=== PATIENT | female | born 1985 | race Caucasian/White ===

== ENCOUNTER → 2016-09-27 | Outpatient (REF) | payer MEDICAID ==
[~2016-09-27] MED LIST: /CELE20CA OR; /ESCI20TA; /ESOM40CA; /FENO48TA PO; /ONDA4TA OR; /PANT40TA OR; /WARF4TA PO; ACET65TA OR; ALA1CRE TOP; ALBU83IN; ASPI325T PO; ASPI81TA83 OR; ASPI81TA85 PO; BACL10TA2 OR; BISA10SU2 PR; CELE40TA OR; CETI10TA OR; CITRATE OF MAGNESIA PO; COLA100C2 OR; COMBVENT INH; CORTISONE CREAM TOP; DEPA500T; DEPA500T2 OR; DEPA500T2 PO; DEPAKOTE PO; DIVA500T3 PO; DUONSOL IN; ENEMENE3 PR; ENOX40SY SC; FLOV110A INH; GABA800T3 OR; HYDR50TA8 OR; IBUP400T OR; KEPP500T4 PO; KEPPRA PO; LASI20TA OR; LASI40TA PO; LEVETIRACETAM PO; LIDODERM PATCH TD; MEDR1VL IM; METAXALONE PO; METF1000 PO; METF500T PO; MILKSUS OR; MIRALEX PO; MOBI15TA PO; MOM30SS PO; MUCI600T34 PO; MULTIVIT PO; MYLASUS6 PO; NEUR400C OR; NEURONTIN PO; NYSTPOW4 TOP; PERC5TAB8 OR; PERCOCET PO; PREPARATION H TOP; PREPGEL; PROZAC PO; SIMV20TA2 OR; SODIGEL; TRAZ50TA2 PO; VENTAER IN; VENTAER INH; VIMP50TA3 PO; VIST25CA OR; VIST50CA OR; WARF3TAB PO; XANA0.25 PO; ZANT150T PO; [UNRECOGNIZED DRUG - OTHER] PO; desyrel PO; fleet enema PR; imodium PO; nicorette PO; roxanol SL; skelaxin PO
== END ==
PROVIDERS: ATTEND Internal Medicine
DX: R56.9 Unspecified convulsions (principal)

== ENCOUNTER → 2016-10-24 | Outpatient (REF) | payer MEDICAID | PROVIDERS: ATTEND Internal Medicine | DX: G80.9 Cerebral palsy, unspecified (principal) ==

== ENCOUNTER → 2016-11-28 | Outpatient (REF) | payer MEDICAID | PROVIDERS: ATTEND Internal Medicine | DX: G40.909 Epilepsy, unspecified, not intractable, without status epilepticus (principal) ==

== ENCOUNTER → 2016-12-08 | Outpatient (REF) | payer MEDICAID | PROVIDERS: ATTEND Internal Medicine | DX: Z51.81 Encounter for therapeutic drug level monitoring (principal); Z79.899 Other long term (current) drug therapy ==

== ENCOUNTER → 2017-01-09 | Outpatient (REF) | payer MEDICAID | PROVIDERS: ATTEND Internal Medicine | DX: M54.5 Low back pain (principal) ==

== ENCOUNTER → 2017-01-17 | Outpatient (REF) | payer MEDICAID ==
--- NOTE | 2017-01-17 10:46 | REP ---
LUMBAR SPINE, SIX VIEWS: HISTORY: Back pain. There is no acute fracture or subluxation. The L2-3 through L5-S1 intervertebral discs are decreased in height consistent with disc degeneration. The facet joints are normal in appearance. IMPRESSION: Degenerative change, as described above. Signed by Mahamed Lerner MD 01/17/2017 10:48 A
== END ==
PROVIDERS: ATTEND Internal Medicine
DX: M51.36 Other intervertebral disc degeneration, lumbar region (principal)

== ENCOUNTER → 2017-01-17 | Outpatient (CLI) | payer MEDICAID | LOC: M RAD 09:52 | PROVIDERS: ATTEND Physician Assistant | DX: M54.5 Low back pain (principal) ==

== ENCOUNTER → 2017-01-23 | Outpatient (REF) | payer MEDICAID | PROVIDERS: ATTEND Internal Medicine | DX: R07.9 Chest pain, unspecified (principal) ==

== ENCOUNTER → 2017-02-14 | Outpatient (REF) | payer MEDICAID ==
[2017-02-14 10:54] LABS: MEAN CORPUSCULAR HEMOGLOBIN 28.7 pg (27.0-33.0); MEAN CORPUSCULAR HGB CONC 32.1 g/dl (32.0-36.5); MEAN CORPUSCULAR VOLUME 89.4 fl (80.0-96.0); RED CELL DISTRIBUTION WIDTH 13.4 % (11.5-14.5); WHITE BLOOD COUNT 7.8 K/mm3 (4.0-10.0)
[2017-02-14 11:22] LABS: ALBUMIN 3.2 GM/DL (3.2-5.2); ALBUMIN/GLOBULIN RATIO 0.94 (1.00-1.93); ALKALINE PHOSPHATASE 60 U/L (45-117); ALT/SGPT 21 U/L (12-78); ANION GAP 7 MEQ/L (8-16); AST/SGOT 21 U/L (15-37); BILIRUBIN,TOTAL 0.1 MG/DL (0.2-1.0); BLOOD UREA NITROGEN 8 MG/DL (7-18); CALCIUM LEVEL 8.5 MG/DL (8.5-10.1); CARBON DIOXIDE LEVEL 34 MEQ/L (21-32); CHLORIDE LEVEL 102 MEQ/L (98-107); CREATININE FOR GFR 0.24 MG/DL (0.55-1.02); GLOMERULAR FILTRATION RATE > 60.0 (>60); GLUCOSE, FASTING 98 MG/DL (70-105); POTASSIUM SERUM 4.4 MEQ/L (3.5-5.1); SODIUM LEVEL 143 MEQ/L (136-145); TOTAL PROTEIN 6.6 GM/DL (6.4-8.2)
== END ==
PROVIDERS: ATTEND Internal Medicine
DX: H10.45 Other chronic allergic conjunctivitis (principal); R63.5 Abnormal weight gain; R25.2 Cramp and spasm

== ENCOUNTER → 2017-02-28 | Outpatient (REF) | payer MEDICAID | PROVIDERS: ATTEND Internal Medicine | DX: G43.909 Migraine, unspecified, not intractable, without status migrainosus (principal) ==

== ENCOUNTER → 2017-03-27 | Outpatient (REF) | payer MEDICAID | PROVIDERS: ATTEND Internal Medicine | DX: R56.9 Unspecified convulsions (principal) ==

== ENCOUNTER → 2017-04-03 | Outpatient (REF) | payer MEDICAID | PROVIDERS: ATTEND Internal Medicine | DX: G40.909 Epilepsy, unspecified, not intractable, without status epilepticus (principal) ==

== ENCOUNTER → 2017-04-24 | Outpatient (REF) | payer MEDICAID ==
[2017-04-27 00:06] LABS: VITAMIN D 1,25 DIHYDROXY 28.6 pg/mL (19.9-79.3)
== END ==
PROVIDERS: ATTEND Internal Medicine
DX: G80.9 Cerebral palsy, unspecified (principal)

== ENCOUNTER → 2017-05-30 | Outpatient (REF) | payer MEDICAID | PROVIDERS: ATTEND Internal Medicine | DX: G40.909 Epilepsy, unspecified, not intractable, without status epilepticus (principal) ==

== ENCOUNTER → 2017-07-31 | Outpatient (CLI) | payer MEDICAID ==
--- NOTE | 2017-07-31 15:41 | REP ---
Clinical: Pelvic pain. History of ovarian cyst. Technique: Transabdominal pelvic ultrasound followed by transvaginal examination for better evaluation of the endometrium and adnexa with color Doppler evaluation of the ovaries. Comparison: 06/29/2016. Findings: The bladder is completely collapsed. Anteverted uterus measures 11.6 x 6.1 x 6.6 cm. The endometrial complex is poorly evaluated due to technical factors. The left ovary is not visualized. The right ovary measures 6.0 x 5.6 x 6.2 cm and includes a 5.0 x 3.9 x 4.6 cm simple cyst. Vascularity to the right ovary is normal and there is no evidence for torsion; RI = 0.71. No pelvic fluid or adnexal mass lesion. Impression: Heterogeneous enlarged uterus. 5.0 cm right ovarian cyst similar to prior examination. No evidence for torsion. Signed by Edi Johnson MD 07/31/2017 03:33 P
== END ==
LOC: M RAD 13:14
PROVIDERS: ATTEND Physician Assistant
DX: N85.2 Hypertrophy of uterus (principal); N83.291 Other ovarian cyst, right side; D39.11 Neoplasm of uncertain behavior of right ovary; R10.31 Right lower quadrant pain

== ENCOUNTER → 2017-08-01 | Outpatient (REF) | payer MEDICAID ==
[2017-08-01 11:17] LABS: MEAN CORPUSCULAR HEMOGLOBIN 26.9 pg (27.0-33.0); MEAN CORPUSCULAR HGB CONC 29.6 g/dl (32.0-36.5); MEAN CORPUSCULAR VOLUME 91.1 fl (80.0-96.0); PLATELET COUNT, AUTOMATED 295 10^3/uL (150-450); RED CELL DISTRIBUTION WIDTH 14.1 % (11.5-14.5); WHITE BLOOD COUNT 7.6 10^3/uL (4.0-10.0)
[2017-08-01 11:41] LABS: ALBUMIN 3.2 GM/DL (3.2-5.2); ALBUMIN/GLOBULIN RATIO 0.89 (1.00-1.93); ALKALINE PHOSPHATASE 58 U/L (45-117); ALT/SGPT 15 U/L (12-78); ANION GAP 7 MEQ/L (8-16); AST/SGOT 5 U/L (7-37); BILIRUBIN,TOTAL 0.1 MG/DL (0.2-1.0); BLOOD UREA NITROGEN 7 MG/DL (7-18); CALCIUM LEVEL 8.8 MG/DL (8.5-10.1); CARBON DIOXIDE LEVEL 35 MEQ/L (21-32); CHLORIDE LEVEL 100 MEQ/L (98-107); CHOLESTEROL LEVEL 229 MG/DL (<200); CREATININE FOR GFR 0.31 MG/DL (0.55-1.02); GLOMERULAR FILTRATION RATE > 60.0 (>60); GLUCOSE, FASTING 124 MG/DL (70-105); SODIUM LEVEL 142 MEQ/L (136-145); TOTAL PROTEIN 6.8 GM/DL (6.4-8.2); TRIGLYCERIDES LEVEL 261 MG/DL (<150)
== END ==
PROVIDERS: ATTEND Internal Medicine
DX: G80.9 Cerebral palsy, unspecified (principal)

== ENCOUNTER → 2017-09-03 | Outpatient (REF) | payer MEDICAID ==
[2017-09-03 12:52] LABS: MEAN CORPUSCULAR HEMOGLOBIN 26.8 pg (27.0-33.0); MEAN CORPUSCULAR HGB CONC 29.5 g/dl (32.0-36.5); MEAN CORPUSCULAR VOLUME 90.8 fl (80.0-96.0); PLATELET COUNT, AUTOMATED 277 10^3/uL (150-450); RED CELL DISTRIBUTION WIDTH 14.6 % (11.5-14.5)
[2017-09-03 13:14] LABS: ANION GAP 6 MEQ/L (8-16); BLOOD UREA NITROGEN 9 MG/DL (7-18); CALCIUM LEVEL 9.3 MG/DL (8.5-10.1); CARBON DIOXIDE LEVEL 35 MEQ/L (21-32); CHLORIDE LEVEL 101 MEQ/L (98-107); CREATININE FOR GFR 0.24 MG/DL (0.55-1.02); GLOMERULAR FILTRATION RATE > 60.0 (>60); GLUCOSE, FASTING 114 MG/DL (70-105); POTASSIUM SERUM 4.1 MEQ/L (3.5-5.1); SODIUM LEVEL 142 MEQ/L (136-145)
== END ==
PROVIDERS: ATTEND Internal Medicine
DX: I10 Essential (primary) hypertension (principal)

== ENCOUNTER 2017-10-12 17:13 | Observation (INO) | payer MEDICAID ==
[2017-10-12] MEDS: NS 500 ML IV (17:00)
[2017-10-12 18:32] LABS: BASO % 0.2 % (0.0-1.0); EOS # 0.2 10^3/uL (0.0-0.50); EOS % 2.6 % (0.0-3.0); HEMATOCRIT 26.1 % (36.0-47.0); HEMOGLOBIN 7.4 g/dl (12.0-16.0); IMMATURE GRANULOCYTE # 0.1 10^3/uL (0-0); IMMATURE GRANULOCYTE % 0.7 % (0-0); LYMPH # 2.6 10^3/uL (1.5-4.5); LYMPH % 30.4 % (24.0-44.0); MEAN CORPUSCULAR HEMOGLOBIN 22.7 pg (27.0-33.0); MEAN CORPUSCULAR HGB CONC 28.4 g/dl (32.0-36.5); MEAN CORPUSCULAR VOLUME 80.1 fl (80.0-96.0); MONO % 12.1 % (0.0-5.0); NEUTROPHILS # 4.6 10^3/uL (1.8-7.7); PLATELET COUNT, AUTOMATED 428 10^3/uL (150-450); RED BLOOD COUNT 3.26 10^6/uL (4.00-5.40); WHITE BLOOD COUNT 8.6 10^3/uL (4.0-10.0)
[2017-10-12 18:47] LABS: PROTHROMBIN TIME 12.2 SECONDS (12.4-14.5)
[2017-10-12 18:48] LABS: PARTIAL THROMBOPLASTIN TIME 27.7 SECONDS (26.8-37.9)
[2017-10-12 18:51] LABS: ALBUMIN 2.9 GM/DL (3.2-5.2); ALBUMIN/GLOBULIN RATIO 0.67 (1.00-1.93); ALKALINE PHOSPHATASE 52 U/L (45-117); ALT/SGPT 11 U/L (12-78); ANION GAP 4 MEQ/L (8-16); AST/SGOT 50 U/L (7-37); BILIRUBIN,DIRECT < 0.1 MG/DL (0.0-0.2); BILIRUBIN,TOTAL 0.2 MG/DL (0.2-1.0); BLOOD UREA NITROGEN 9 MG/DL (7-18); CALCIUM LEVEL 8.5 MG/DL (8.5-10.1); CARBON DIOXIDE LEVEL 35 MEQ/L (21-32); CHLORIDE LEVEL 101 MEQ/L (98-107); CREATININE FOR GFR 0.33 MG/DL (0.55-1.02); GLOMERULAR FILTRATION RATE > 60.0 (>60); GLUCOSE, FASTING 135 MG/DL (70-100); LIPASE 77 U/L (73-393); SODIUM LEVEL 140 MEQ/L (136-145); TOTAL PROTEIN 7.2 GM/DL (6.4-8.2)
[2017-10-12 18:52] LABS: LACTIC ACID SEPSIS PROTOCOL 1.6 MMOL/L (0.4-2.0)
[2017-10-12 18:54] LABS: POTASSIUM SERUM 4.9 MEQ/L (3.5-5.1)
[2017-10-12] MEDS ORDERED: ONDANSETRON 4MG/2ML VIAL (J2405) IV (21:15)
[2017-10-12] MEDS ORDERED: ACETAMINOPHEN TAB 650MG DOSE (2X325MG) PO (21:15)
[2017-10-12 21:44] LABS: IMMEDIATE SPIN CROSSMATCH 1 3
[2017-10-12] MEDS: LORazepam 2 MG/ML VIAL (J2060) IV (21:49)
[2017-10-12] MEDS ORDERED: MOM 30ML SUSPENSION UDC PO (22:45)
[2017-10-12] MEDS ORDERED: BISACODYL 10 MG SUPP PR (22:45)
[2017-10-12] MEDS ORDERED: POLYVINYL ALCOHOL OPHTH SOLN 15 ML(LIQUITEARS) OU (22:45)
[2017-10-12] MEDS ORDERED: FLEET ENEMA PR (22:45)
[2017-10-12] MEDS ORDERED: ALBUTEROL SULFATE 2.5 MG/0.5 ML INH NEB SOLN INH (22:45)
[2017-10-12] MEDS ORDERED: SODIUM CHLORIDE 0.9% NASAL GEL 15MG (AYR) (22:45)
[2017-10-13 07:05] LABS: BASO % 0.2 % (0.0-1.0); EOS # 0.2 10^3/uL (0.0-0.50); EOS % 1.8 % (0.0-3.0); HEMATOCRIT 31.3 % (36.0-47.0); IMMATURE GRANULOCYTE # 0.1 10^3/uL (0-0); IMMATURE GRANULOCYTE % 0.8 % (0-0); LYMPH # 2.3 10^3/uL (1.5-4.5); LYMPH % 25.1 % (24.0-44.0); MEAN CORPUSCULAR HEMOGLOBIN 23.9 pg (27.0-33.0); MEAN CORPUSCULAR HGB CONC 30.4 g/dl (32.0-36.5); MEAN CORPUSCULAR VOLUME 78.8 fl (80.0-96.0); MONO # 1.3 10^3/uL (0.0-0.8); MONO % 14.6 % (0.0-5.0); NEUTROPHILS # 5.2 10^3/uL (1.8-7.7); NEUTROPHILS % 57.5 % (36.0-66.0); PLATELET COUNT, AUTOMATED 371 10^3/uL (150-450); RED BLOOD COUNT 3.97 10^6/uL (4.00-5.40); RED CELL DISTRIBUTION WIDTH 17.8 % (11.5-14.5)
[2017-10-13 07:11] LABS: HEMOGLOBIN 9.5 g/dl (12.0-16.0)
[2017-10-13 07:28] LABS: ANION GAP 4 MEQ/L (8-16); BLOOD UREA NITROGEN 7 MG/DL (7-18); CALCIUM LEVEL 8.4 MG/DL (8.5-10.1); CARBON DIOXIDE LEVEL 36 MEQ/L (21-32); CHLORIDE LEVEL 103 MEQ/L (98-107); CREATININE FOR GFR 0.28 MG/DL (0.55-1.02); GLOMERULAR FILTRATION RATE > 60.0 (>60); GLUCOSE, FASTING 111 MG/DL (70-100); SODIUM LEVEL 143 MEQ/L (136-145)
[2017-10-13] MEDS: BACLOFEN 10 MG TAB PO ×3 (08:47→19:34)
[2017-10-13] MEDS: levETIRAcetam 250MG TABLET (KEPPRA) PO ×2 (08:48→19:32)
[2017-10-13] MEDS: DOCUSATE SODIUM 100 MG CAP PO ×2 (08:48→19:33)
[2017-10-13] MEDS: LETROZOLE 2.5 MG TAB PO (08:48)
[2017-10-13] MEDS: GABAPENTIN 400 MG CAP PO ×3 (08:48→19:36)
[2017-10-13] MEDS: DIVALPROEX 500 MG TAB PO ×2 (08:48→19:34)
[2017-10-13] MEDS: CEPHALEXIN 500 MG CAP PO ×2 (08:48→19:34)
[2017-10-13] MEDS: LACTIC ACID 12% LOTION 225 GM BTL TOP (08:49)
[2017-10-13] MEDS: GEMFIBROZIL 600 MG TAB PO ×2 (08:49→19:34)
[2017-10-13] MEDS: NORCO, ANEXSIA 5/325MG TABLET (HYDROcodone/ACETAMINOPHEN) PO ×2 (13:17→19:33)
[2017-10-13 19:13] LABS: HEMATOCRIT 32.4 % (36.0-47.0); HEMOGLOBIN 9.8 g/dl (12.0-16.0)
[2017-10-13] MEDS: FLUoxetine 20 MG CAP PO (19:32)
[2017-10-13] MEDS: PRAVASTATIN 20 MG TAB PO (19:34)
[2017-10-13] MEDS: OSELTAMIVIR PHOSPHATE 75 MG CAP (TAMIFLU) PO (19:34)
[2017-10-13] MEDS ORDERED: FLUoxetine 20 MG CAP PO (21:00)
[2017-10-14] MEDS: LORazepam 2 MG/ML VIAL (J2060) IV (02:31)
[2017-10-14 05:58] LABS: BASO % 0.4 % (0.0-1.0); EOS # 0.2 10^3/uL (0.0-0.50); EOS % 2.5 % (0.0-3.0); HEMATOCRIT 33.3 % (36.0-47.0); HEMOGLOBIN 9.7 g/dl (12.0-16.0); IMMATURE GRANULOCYTE # 0.1 10^3/uL (0-0); IMMATURE GRANULOCYTE % 0.6 % (0-0); LYMPH # 2.4 10^3/uL (1.5-4.5); LYMPH % 28.6 % (24.0-44.0); MEAN CORPUSCULAR HEMOGLOBIN 23.5 pg (27.0-33.0); MEAN CORPUSCULAR HGB CONC 29.1 g/dl (32.0-36.5); MEAN CORPUSCULAR VOLUME 80.6 fl (80.0-96.0); MONO # 1.1 10^3/uL (0.0-0.8); MONO % 13.7 % (0.0-5.0); NEUTROPHILS # 4.5 10^3/uL (1.8-7.7); NEUTROPHILS % 54.2 % (36.0-66.0); PLATELET COUNT, AUTOMATED 378 10^3/uL (150-450); RED BLOOD COUNT 4.13 10^6/uL (4.00-5.40); RED CELL DISTRIBUTION WIDTH 17.7 % (11.5-14.5); WHITE BLOOD COUNT 8.3 10^3/uL (4.0-10.0)
[2017-10-14 06:16] LABS: ANION GAP 6 MEQ/L (8-16); BLOOD UREA NITROGEN 8 MG/DL (7-18); CALCIUM LEVEL 8.8 MG/DL (8.5-10.1); CARBON DIOXIDE LEVEL 34 MEQ/L (21-32); CHLORIDE LEVEL 105 MEQ/L (98-107); CREATININE FOR GFR 0.26 MG/DL (0.55-1.02); GLOMERULAR FILTRATION RATE > 60.0 (>60); GLUCOSE, FASTING 146 MG/DL (70-100); POTASSIUM SERUM 3.7 MEQ/L (3.5-5.1); SODIUM LEVEL 145 MEQ/L (136-145)
[2017-10-14] MEDS: GEMFIBROZIL 600 MG TAB PO ×2 (09:00→19:40)
[2017-10-14] MEDS: LETROZOLE 2.5 MG TAB PO (09:00)
[2017-10-14] MEDS: CEPHALEXIN 500 MG CAP PO ×2 (09:00→19:41)
[2017-10-14] MEDS: DIVALPROEX 500 MG TAB PO ×2 (09:00→19:42)
[2017-10-14] MEDS: GABAPENTIN 400 MG CAP PO ×3 (09:00→19:42)
[2017-10-14] MEDS: DOCUSATE SODIUM 100 MG CAP PO ×2 (09:00→19:41)
[2017-10-14] MEDS: levETIRAcetam 250MG TABLET (KEPPRA) PO ×2 (09:00→19:41)
[2017-10-14] MEDS: LACTIC ACID 12% LOTION 225 GM BTL TOP (09:00)
[2017-10-14] MEDS: BACLOFEN 10 MG TAB PO ×3 (09:00→19:40)
[2017-10-14] MEDS: NORCO, ANEXSIA 5/325MG TABLET (HYDROcodone/ACETAMINOPHEN) PO ×2 (09:32→16:54)
[2017-10-14] MEDS: PRAVASTATIN 20 MG TAB PO (19:40)
[2017-10-14] MEDS: OSELTAMIVIR PHOSPHATE 75 MG CAP (TAMIFLU) PO (19:41)
[2017-10-14] MEDS: FLUoxetine 20 MG CAP PO (19:41)
[2017-10-15 08:33] LABS: BASO % 0.3 % (0.0-1.0); EOS # 0.2 10^3/uL (0.0-0.50); EOS % 2.5 % (0.0-3.0); HEMATOCRIT 34.5 % (36.0-47.0); IMMATURE GRANULOCYTE # 0.1 10^3/uL (0-0); IMMATURE GRANULOCYTE % 0.7 % (0-0); LYMPH # 2.4 10^3/uL (1.5-4.5); LYMPH % 31.3 % (24.0-44.0); MEAN CORPUSCULAR HEMOGLOBIN 23.7 pg (27.0-33.0); MEAN CORPUSCULAR VOLUME 81.8 fl (80.0-96.0); MONO # 0.9 10^3/uL (0.0-0.8); MONO % 11.7 % (0.0-5.0); NEUTROPHILS # 4.1 10^3/uL (1.8-7.7); NEUTROPHILS % 53.5 % (36.0-66.0); PLATELET COUNT, AUTOMATED 360 10^3/uL (150-450); RED BLOOD COUNT 4.22 10^6/uL (4.00-5.40); RED CELL DISTRIBUTION WIDTH 18.4 % (11.5-14.5); WHITE BLOOD COUNT 7.6 10^3/uL (4.0-10.0)
[2017-10-15] MEDS: GEMFIBROZIL 600 MG TAB PO (08:36)
[2017-10-15] MEDS: BACLOFEN 10 MG TAB PO (08:36)
[2017-10-15] MEDS: CEPHALEXIN 500 MG CAP PO (08:37)
[2017-10-15] MEDS: DIVALPROEX 500 MG TAB PO (08:37)
[2017-10-15] MEDS: LETROZOLE 2.5 MG TAB PO (08:37)
[2017-10-15] MEDS: GABAPENTIN 400 MG CAP PO (08:37)
[2017-10-15] MEDS: LACTIC ACID 12% LOTION 225 GM BTL TOP (08:40)
[2017-10-15] MEDS: levETIRAcetam 250MG TABLET (KEPPRA) PO (08:40)
[2017-10-15] MEDS: DOCUSATE SODIUM 100 MG CAP PO (08:41)
[2017-10-15 08:47] LABS: ANION GAP 6 MEQ/L (8-16); BLOOD UREA NITROGEN 5 MG/DL (7-18); CALCIUM LEVEL 8.4 MG/DL (8.5-10.1); CARBON DIOXIDE LEVEL 32 MEQ/L (21-32); CHLORIDE LEVEL 105 MEQ/L (98-107); CREATININE FOR GFR 0.28 MG/DL (0.55-1.30); GLOMERULAR FILTRATION RATE > 60.0 (>60); GLUCOSE, FASTING 149 MG/DL (70-100); POTASSIUM SERUM 3.8 MEQ/L (3.5-5.1); SODIUM LEVEL 143 MEQ/L (136-145)
[2017-10-15] MEDS: ALPRAZolam 0.25 MG TAB PO (09:13)
[2017-10-15] MEDS: NORCO, ANEXSIA 5/325MG TABLET (HYDROcodone/ACETAMINOPHEN) PO (09:14)
[2017-10-15 09:43] LABS: POS COUNT POS FLAG
== END 2017-10-15 12:55 ==
LOC: M ICU 10-13 02:59 → M MS5PR 10-13 12:09 → M ED 17:13 → M ED INP 21:10
DX: D62 Acute posthemorrhagic anemia (principal); N93.8 Other specified abnormal uterine and vaginal bleeding; K76.0 Fatty (change of) liver, not elsewhere classified; R16.0 Hepatomegaly, not elsewhere classified; N83.9 Noninflammatory disorder of ovary, fallopian tube and broad ligament, unspecified; L03.115 Cellulitis of right lower limb; G80.9 Cerebral palsy, unspecified; M41.9 Scoliosis, unspecified; I10 Essential (primary) hypertension; G40.909 Epilepsy, unspecified, not intractable, without status epilepticus; E66.01 Morbid (severe) obesity due to excess calories; F32.9 Major depressive disorder, single episode, unspecified; Z68.43 Body mass index [BMI] 50.0-59.9, adult; J45.909 Unspecified asthma, uncomplicated; Z86.718 Personal history of other venous thrombosis and embolism; K21.9 Gastro-esophageal reflux disease without esophagitis; E78.5 Hyperlipidemia, unspecified; G47.33 Obstructive sleep apnea (adult) (pediatric); N80.9 Endometriosis, unspecified; F60.3 Borderline personality disorder; Z79.899 Other long term (current) drug therapy; Z79.82 Long term (current) use of aspirin; Z79.2 Long term (current) use of antibiotics; Z91.040 Latex allergy status; Z88.8 Allergy status to other drugs, medicaments and biological substances; Z88.1 Allergy status to other antibiotic agents; Z91.041 Radiographic dye allergy status; Z88.0 Allergy status to penicillin; Z87.891 Personal history of nicotine dependence
CPT/HCPCS: 96376

== ENCOUNTER → 2017-10-12 | Outpatient (REF) | payer MEDICAID ==
[2017-10-12 13:15] LABS: HEMOGLOBIN 7.6 g/dl (12.0-16.0); MEAN CORPUSCULAR HEMOGLOBIN 22.7 pg (27.0-33.0); MEAN CORPUSCULAR HGB CONC 28.1 g/dl (32.0-36.5); MEAN CORPUSCULAR VOLUME 80.6 fl (80.0-96.0); PLATELET COUNT, AUTOMATED 434 10^3/uL (150-450); RED BLOOD COUNT 3.35 10^6/uL (4.00-5.40); RED CELL DISTRIBUTION WIDTH 17.1 % (11.5-14.5); WHITE BLOOD COUNT 8.3 10^3/uL (4.0-10.0)
[2017-10-12 13:58] LABS: VALPROIC ACID (DEPAKOTE) 116.2 UG/ML (50.0-100.0)
[2017-10-16 00:07] LABS: LEVETIRACETAM (KEPPRA) 34.2 ug/mL (10.0-40.0)
== END ==
DX: M79.89 Other specified soft tissue disorders (principal)

== ENCOUNTER → 2017-10-23 | Outpatient (REF) | payer MEDICAID ==
[2017-10-23 11:02] LABS: HEMATOCRIT 30.7 % (36.0-47.0); HEMOGLOBIN 8.7 g/dl (12.0-16.0); MEAN CORPUSCULAR HEMOGLOBIN 23.3 pg (27.0-33.0); MEAN CORPUSCULAR HGB CONC 28.3 g/dl (32.0-36.5); MEAN CORPUSCULAR VOLUME 82.1 fl (80.0-96.0); PLATELET COUNT, AUTOMATED 286 10^3/uL (150-450); RED BLOOD COUNT 3.74 10^6/uL (4.00-5.40); RED CELL DISTRIBUTION WIDTH 18.5 % (11.5-14.5)
== END ==
DX: D64.9 Anemia, unspecified (principal)

== ENCOUNTER → 2017-10-24 | Outpatient (REF) | payer MEDICAID ==
[2017-10-24 16:45] LABS: HEMATOCRIT 31.2 % (36.0-47.0); HEMOGLOBIN 9.1 g/dl (12.0-16.0); MEAN CORPUSCULAR HEMOGLOBIN 24.2 pg (27.0-33.0); MEAN CORPUSCULAR HGB CONC 29.2 g/dl (32.0-36.5); PLATELET COUNT, AUTOMATED 261 10^3/uL (150-450); RED BLOOD COUNT 3.76 10^6/uL (4.00-5.40); RED CELL DISTRIBUTION WIDTH 18.3 % (11.5-14.5); WHITE BLOOD COUNT 8.9 10^3/uL (4.0-10.0)
== END ==
DX: N93.9 Abnormal uterine and vaginal bleeding, unspecified (principal)
CPT/HCPCS: 85027

== ENCOUNTER → 2017-10-25 | Outpatient (REF) | payer MEDICAID ==
[2017-10-25 09:36] LABS: HEMATOCRIT 29.2 % (36.0-47.0); HEMOGLOBIN 8.3 g/dl (12.0-16.0); MEAN CORPUSCULAR HEMOGLOBIN 23.3 pg (27.0-33.0); MEAN CORPUSCULAR HGB CONC 28.4 g/dl (32.0-36.5); PLATELET COUNT, AUTOMATED 290 10^3/uL (150-450); RED BLOOD COUNT 3.56 10^6/uL (4.00-5.40); RED CELL DISTRIBUTION WIDTH 18.2 % (11.5-14.5); WHITE BLOOD COUNT 6.6 10^3/uL (4.0-10.0)
[2017-10-26 11:36] LABS: CA 125 4.6 U/ML (<30.2)
== END ==
DX: D64.9 Anemia, unspecified (principal)
CPT/HCPCS: 86304

== ENCOUNTER 2017-10-26 09:54 | Outpatient (REF) | payer MEDICAID ==
[2017-10-26 11:52] LABS: HEMATOCRIT 27.3 % (36.0-47.0); HEMOGLOBIN 7.8 g/dl (12.0-16.0); MEAN CORPUSCULAR HEMOGLOBIN 23.7 pg (27.0-33.0); MEAN CORPUSCULAR HGB CONC 28.6 g/dl (32.0-36.5); PLATELET COUNT, AUTOMATED 323 10^3/uL (150-450); RED BLOOD COUNT 3.29 10^6/uL (4.00-5.40); RED CELL DISTRIBUTION WIDTH 18.6 % (11.5-14.5)
[2017-10-26] MEDS: ACETAMINOPHEN TAB 650MG DOSE (2X325MG) PO (18:00)
[2017-10-26] MEDS: diphenhydrAMINE 25 MG CAP PO (18:00)
[2017-10-26 20:29] LABS: IMMEDIATE SPIN CROSSMATCH 1 2
== END 2017-10-26 23:00 ==
LOC: M MSPAV 15:21
DX: D64.9 Anemia, unspecified (principal)

== ENCOUNTER → 2017-10-27 | Outpatient (REF) | payer MEDICAID ==
[2017-10-27 11:06] LABS: HEMATOCRIT 30.2 % (36.0-47.0); HEMOGLOBIN 8.8 g/dl (12.0-16.0); MEAN CORPUSCULAR HEMOGLOBIN 25.1 pg (27.0-33.0); MEAN CORPUSCULAR HGB CONC 29.1 g/dl (32.0-36.5); PLATELET COUNT, AUTOMATED 298 10^3/uL (150-450); RED BLOOD COUNT 3.51 10^6/uL (4.00-5.40); RED CELL DISTRIBUTION WIDTH 17.6 % (11.5-14.5); WHITE BLOOD COUNT 9.4 10^3/uL (4.0-10.0)
== END ==
LOC: M LAB 10:40
DX: D64.9 Anemia, unspecified (principal)
CPT/HCPCS: 85027

== ENCOUNTER → 2017-10-29 | Outpatient (REF) | payer MEDICAID ==
[2017-10-29 10:00] LABS: HEMATOCRIT 28.6 % (36.0-47.0); HEMOGLOBIN 8.6 g/dl (12.0-16.0); MEAN CORPUSCULAR HEMOGLOBIN 25.5 pg (27.0-33.0); MEAN CORPUSCULAR HGB CONC 30.1 g/dl (32.0-36.5); MEAN CORPUSCULAR VOLUME 84.9 fl (80.0-96.0); PLATELET COUNT, AUTOMATED 345 10^3/uL (150-450); RED BLOOD COUNT 3.37 10^6/uL (4.00-5.40); WHITE BLOOD COUNT 8.6 10^3/uL (4.0-10.0)
== END ==
DX: D64.9 Anemia, unspecified (principal)
CPT/HCPCS: 85027

== ENCOUNTER → 2017-10-30 | Outpatient (REF) | payer MEDICAID ==
[2017-10-30 10:11] LABS: HEMATOCRIT 28.6 % (36.0-47.0); HEMOGLOBIN 8.5 g/dl (12.0-16.0); MEAN CORPUSCULAR HEMOGLOBIN 25.4 pg (27.0-33.0); MEAN CORPUSCULAR HGB CONC 29.7 g/dl (32.0-36.5); MEAN CORPUSCULAR VOLUME 85.4 fl (80.0-96.0); PLATELET COUNT, AUTOMATED 370 10^3/uL (150-450); RED BLOOD COUNT 3.35 10^6/uL (4.00-5.40); RED CELL DISTRIBUTION WIDTH 18.1 % (11.5-14.5); WHITE BLOOD COUNT 10.7 10^3/uL (4.0-10.0)
== END ==
DX: D64.9 Anemia, unspecified (principal)
CPT/HCPCS: 85027

== ENCOUNTER → 2017-10-31 | Outpatient (REF) | payer MEDICAID | DX: R56.9 Unspecified convulsions (principal); N18.9 Chronic kidney disease, unspecified ==

== ENCOUNTER → 2017-11-02 | Outpatient (REF) | payer MEDICAID ==
[2017-11-02 14:09] LABS: HEMATOCRIT 27.8 % (36.0-47.0); HEMOGLOBIN 8.2 g/dl (12.0-16.0); MEAN CORPUSCULAR HEMOGLOBIN 24.5 pg (27.0-33.0); MEAN CORPUSCULAR HGB CONC 29.5 g/dl (32.0-36.5); PLATELET COUNT, AUTOMATED 489 10^3/uL (150-450); RED BLOOD COUNT 3.35 10^6/uL (4.00-5.40); RED CELL DISTRIBUTION WIDTH 18.1 % (11.5-14.5); WHITE BLOOD COUNT 10.4 10^3/uL (4.0-10.0)
== END ==
DX: D64.9 Anemia, unspecified (principal)
CPT/HCPCS: 85027

== ENCOUNTER → 2017-11-06 | Outpatient (REF) | payer MEDICAID | DX: D64.9 Anemia, unspecified (principal) ==

== ENCOUNTER → 2017-11-14 | Outpatient (REF) | payer MEDICAID ==
[2017-11-14 10:41] LABS: HEMATOCRIT 28.3 % (36.0-47.0); HEMOGLOBIN 8.3 g/dl (12.0-16.0); MEAN CORPUSCULAR HEMOGLOBIN 24.9 pg (27.0-33.0); MEAN CORPUSCULAR HGB CONC 29.3 g/dl (32.0-36.5); PLATELET COUNT, AUTOMATED 459 10^3/uL (150-450); RED BLOOD COUNT 3.33 10^6/uL (4.00-5.40); RED CELL DISTRIBUTION WIDTH 16.8 % (11.5-14.5); WHITE BLOOD COUNT 6.2 10^3/uL (4.0-10.0)
[2017-11-14 11:09] LABS: ALBUMIN 2.9 GM/DL (3.2-5.2); ALBUMIN/GLOBULIN RATIO 0.94 (1.00-1.93); ALKALINE PHOSPHATASE 53 U/L (45-117); ALT/SGPT 12 U/L (12-78); ANION GAP 5 MEQ/L (8-16); AST/SGOT 7 U/L (7-37); BILIRUBIN,TOTAL 0.1 MG/DL (0.2-1.0); BLOOD UREA NITROGEN 7 MG/DL (7-18); CALCIUM LEVEL 8.4 MG/DL (8.5-10.1); CARBON DIOXIDE LEVEL 36 MEQ/L (21-32); CHLORIDE LEVEL 99 MEQ/L (98-107); GLOMERULAR FILTRATION RATE > 60.0 (>60); GLUCOSE, FASTING 113 MG/DL (70-100); POTASSIUM SERUM 3.5 MEQ/L (3.5-5.1); SODIUM LEVEL 140 MEQ/L (136-145)
== END ==
DX: D64.9 Anemia, unspecified (principal)
CPT/HCPCS: 80053

== ENCOUNTER → 2017-11-16 | Outpatient (REF) ==
[2017-11-16 10:12] LABS: HEMATOCRIT 28.4 % (36.0-47.0); HEMOGLOBIN 8.3 g/dl (12.0-16.0); MEAN CORPUSCULAR HEMOGLOBIN 24.7 pg (27.0-33.0); MEAN CORPUSCULAR HGB CONC 29.2 g/dl (32.0-36.5); MEAN CORPUSCULAR VOLUME 84.5 fl (80.0-96.0); PLATELET COUNT, AUTOMATED 444 10^3/uL (150-450); RED BLOOD COUNT 3.36 10^6/uL (4.00-5.40); RED CELL DISTRIBUTION WIDTH 16.8 % (11.5-14.5); WHITE BLOOD COUNT 6.4 10^3/uL (4.0-10.0)
== END ==
DX: D64.9 Anemia, unspecified (principal)

== ENCOUNTER → 2017-11-27 | Outpatient (REF) | payer MEDICAID ==
[2017-11-27 10:00] LABS: HEMATOCRIT 29.1 % (36.0-47.0); HEMOGLOBIN 8.1 g/dl (12.0-16.0); MEAN CORPUSCULAR HEMOGLOBIN 23.3 pg (27.0-33.0); MEAN CORPUSCULAR HGB CONC 27.8 g/dl (32.0-36.5); MEAN CORPUSCULAR VOLUME 83.9 fl (80.0-96.0); PLATELET COUNT, AUTOMATED 315 10^3/uL (150-450); RED BLOOD COUNT 3.47 10^6/uL (4.00-5.40); RED CELL DISTRIBUTION WIDTH 17.6 % (11.5-14.5); WHITE BLOOD COUNT 5.3 10^3/uL (4.0-10.0)
== END ==
DX: D64.9 Anemia, unspecified (principal)
CPT/HCPCS: 85027

== ENCOUNTER → 2017-12-04 | Outpatient (REF) | payer MEDICAID ==
[2017-12-04 10:31] LABS: HEMATOCRIT 29.2 % (36.0-47.0); HEMOGLOBIN 8.2 g/dl (12.0-16.0); MEAN CORPUSCULAR HEMOGLOBIN 23.1 pg (27.0-33.0); MEAN CORPUSCULAR HGB CONC 28.1 g/dl (32.0-36.5); MEAN CORPUSCULAR VOLUME 82.3 fl (80.0-96.0); PLATELET COUNT, AUTOMATED 268 10^3/uL (150-450); RED BLOOD COUNT 3.55 10^6/uL (4.00-5.40); RED CELL DISTRIBUTION WIDTH 17.7 % (11.5-14.5); WHITE BLOOD COUNT 6.3 10^3/uL (4.0-10.0)
== END ==
DX: D64.9 Anemia, unspecified (principal)
CPT/HCPCS: 85027

== ENCOUNTER → 2017-12-11 | Outpatient (REF) | payer MEDICAID ==
[2017-12-11 09:41] LABS: HEMATOCRIT 29.2 % (36.0-47.0); HEMOGLOBIN 8.3 g/dl (12.0-16.0); MEAN CORPUSCULAR HEMOGLOBIN 22.8 pg (27.0-33.0); MEAN CORPUSCULAR HGB CONC 28.4 g/dl (32.0-36.5); MEAN CORPUSCULAR VOLUME 80.2 fl (80.0-96.0); PLATELET COUNT, AUTOMATED 343 10^3/uL (150-450); RED BLOOD COUNT 3.64 10^6/uL (4.00-5.40); RED CELL DISTRIBUTION WIDTH 17.7 % (11.5-14.5); WHITE BLOOD COUNT 6.7 10^3/uL (4.0-10.0)
== END ==
DX: D64.9 Anemia, unspecified (principal)
CPT/HCPCS: 85027

== ENCOUNTER → 2017-12-12 | Outpatient (REF) | payer MEDICAID ==
[2017-12-12 17:17] LABS: HEMATOCRIT 29.7 % (36.0-47.0); HEMOGLOBIN 8.4 g/dl (12.0-16.0); MEAN CORPUSCULAR HEMOGLOBIN 22.9 pg (27.0-33.0); MEAN CORPUSCULAR HGB CONC 28.3 g/dl (32.0-36.5); MEAN CORPUSCULAR VOLUME 80.9 fl (80.0-96.0); PLATELET COUNT, AUTOMATED 323 10^3/uL (150-450); RED BLOOD COUNT 3.67 10^6/uL (4.00-5.40); RED CELL DISTRIBUTION WIDTH 17.8 % (11.5-14.5); WHITE BLOOD COUNT 6.8 10^3/uL (4.0-10.0)
[2017-12-12 17:37] LABS: ALBUMIN 3.2 GM/DL (3.2-5.2); ALBUMIN/GLOBULIN RATIO 0.97 (1.00-1.93); ALKALINE PHOSPHATASE 60 U/L (45-117); ALT/SGPT 15 U/L (12-78); ANION GAP 7 MEQ/L (8-16); AST/SGOT 9 U/L (7-37); BILIRUBIN,TOTAL 0.2 MG/DL (0.2-1.0); BLOOD UREA NITROGEN 8 MG/DL (7-18); CALCIUM LEVEL 8.5 MG/DL (8.5-10.1); CARBON DIOXIDE LEVEL 33 MEQ/L (21-32); CHLORIDE LEVEL 102 MEQ/L (98-107); CREATININE FOR GFR 0.41 MG/DL (0.55-1.30); GLOMERULAR FILTRATION RATE > 60.0 (>60); GLUCOSE, FASTING 191 MG/DL (70-100); POTASSIUM SERUM 3.7 MEQ/L (3.5-5.1); SODIUM LEVEL 142 MEQ/L (136-145); TOTAL PROTEIN 6.5 GM/DL (6.4-8.2)
== END ==
DX: Z01.818 Encounter for other preprocedural examination (principal)
CPT/HCPCS: 80053

== ENCOUNTER → 2017-12-14 | Outpatient (REF) | payer MEDICAID ==
[2017-12-14 14:28] LABS: AMORPHOUS SEDIMENT MODERATE (NEGATIVE); APPEARANCE, URINE TURBID (CLEAR); BACTERIA, URINE AUTO 1+ (NEGATIVE); BILIRUBIN, URINE AUTO NEGATIVE (NEGATIVE); BLOOD, URINE BLOOD 3+ (NEGATIVE); COLOR, URINE YELLOW (YELLOW); GLUCOSE, URINE (UA) AUTO NEGATIVE (NEGATIVE); KETONE, URINE AUTO NEGATIVE (NEGATIVE); LEUKOCYTE ESTERASE, URINE AUTO 3+ (NEGATIVE); MUCUS, URINE SMALL (NEGATIVE); NITRITE, URINE AUTO NEGATIVE (NEGATIVE); PROTEIN, URINE AUTO NEGATIVE (NEGATIVE); RBC, URINE AUTO 12 /HPF (0-3); RENAL EPITHELIAL CELLS 1 /HPF; SQUAMOUS EPITHELIAL CELL UR AU 1 /HPF (0-6); TRANSITIONAL EPITHELIAL AUTO <1 /HPF; URIC ACID CRYSTALS MODERATE; UROBILINOGEN, URINE AUTO 0.2 mg/dL (0.0-2.0); WBC, URINE AUTO TNTC /HPF (0-3)
== END ==
DX: Z01.818 Encounter for other preprocedural examination (principal)
CPT/HCPCS: 81001

== ENCOUNTER → 2017-12-17 | Outpatient (REF) | payer MEDICAID ==
[2017-12-17 19:50] LABS: APPEARANCE, URINE CLOUDY (CLEAR); BACTERIA, URINE AUTO 2+ (NEGATIVE); BILIRUBIN, URINE AUTO NEGATIVE (NEGATIVE); BLOOD, URINE BLOOD 3+ (NEGATIVE); COLOR, URINE YELLOW (YELLOW); GLUCOSE, URINE (UA) AUTO NEGATIVE (NEGATIVE); KETONE, URINE AUTO TRACE mg/dL (NEGATIVE); LEUKOCYTE ESTERASE, URINE AUTO 3+ (NEGATIVE); MUCUS, URINE SMALL (NEGATIVE); NITRITE, URINE AUTO NEGATIVE (NEGATIVE); PROTEIN, URINE AUTO 2+ mg/dL (NEGATIVE); RBC, URINE AUTO TNTC /HPF (0-3); SPECIFIC GRAVITY URINE AUTO 1.021 (1.002-1.035); SQUAMOUS EPITHELIAL CELL UR AU 3 /HPF (0-6); TRANSITIONAL EPITHELIAL AUTO 1 /HPF; UROBILINOGEN, URINE AUTO 0.2 mg/dL (0.0-2.0); WBC, URINE AUTO TNTC /HPF (0-3)
== END ==
DX: R30.0 Dysuria (principal)
CPT/HCPCS: 81001

== ENCOUNTER → 2018-01-01 | Outpatient (REF) | payer MEDICAID ==
[2018-01-01 09:20] LABS: HEMOGLOBIN 8.4 g/dl (12.0-15.5); MEAN CORPUSCULAR HEMOGLOBIN 21.2 pg (27.0-33.0); MEAN CORPUSCULAR HGB CONC 27.1 g/dl (32.0-36.5); MEAN CORPUSCULAR VOLUME 78.3 fl (80.0-96.0); PLATELET COUNT, AUTOMATED 277 10^3/uL (150-450); RED BLOOD COUNT 3.96 10^6/uL (4.00-5.40); RED CELL DISTRIBUTION WIDTH 18.1 % (11.5-14.5); WHITE BLOOD COUNT 6.6 10^3/uL (4.0-10.0)
== END ==
DX: D64.9 Anemia, unspecified (principal)
CPT/HCPCS: 85027

== ENCOUNTER → 2018-01-08 | Outpatient (REF) | payer MEDICAID ==
[2018-01-08 10:48] LABS: HEMOGLOBIN 8.6 g/dl (12.0-15.5); MEAN CORPUSCULAR HGB CONC 26.9 g/dl (32.0-36.5); PLATELET COUNT, AUTOMATED 324 10^3/uL (150-450); WHITE BLOOD COUNT 5.8 10^3/uL (4.0-10.0)
== END ==
DX: D64.9 Anemia, unspecified (principal)
CPT/HCPCS: 85027

== ENCOUNTER 2018-01-10 15:56 | Outpatient (CLI) | payer MEDICAID | END 2018-01-15 | LOC: M ONCR 15:56 | DX: C67.9 Malignant neoplasm of bladder, unspecified (principal) | CPT/HCPCS: G0463 ==

== ENCOUNTER → 2018-01-15 | Outpatient (REF) | payer MEDICAID ==
[2018-01-15 11:04] LABS: VALPROIC ACID (DEPAKOTE) 73.4 UG/ML (50.0-100.0)
[2018-01-17 14:14] LABS: LEVETIRACETAM (KEPPRA) 16.6 ug/mL (10.0-40.0)
== END ==
DX: R56.9 Unspecified convulsions (principal)
CPT/HCPCS: 80164

== ENCOUNTER → 2018-01-22 | Outpatient (REF) | payer MEDICAID | DX: D64.9 Anemia, unspecified (principal) ==

== ENCOUNTER → 2018-01-22 | Outpatient (REF) | payer MEDICAID ==
[2018-01-22 13:32] LABS: INR 0.95; PARTIAL THROMBOPLASTIN TIME 30.3 SECONDS (26.8-37.9); PROTHROMBIN TIME 12.8 SECONDS (12.4-14.5)
== END ==
LOC: M LAB REF 13:04
DX: C67.9 Malignant neoplasm of bladder, unspecified (principal)

== ENCOUNTER 2018-01-28 10:30 | Outpatient (RCR) | payer MEDICAID | END 2018-02-14 | LOC: M ONCR 10:30 | DX: C67.1 Malignant neoplasm of dome of bladder (principal) | CPT/HCPCS: 77300 ==

== ENCOUNTER → 2018-01-29 | Outpatient (CLI) | payer MEDICAID ==
[~2018-01-29] MED LIST changes: -/CELE20CA OR; -/ESCI20TA; -/ESOM40CA; -/FENO48TA PO; -/ONDA4TA OR; -/PANT40TA OR; -/WARF4TA PO; -ACET65TA OR; -ALA1CRE TOP; -ALBU83IN; -ASPI325T PO; -ASPI81TA83 OR; -ASPI81TA85 PO; -BACL10TA2 OR; -BISA10SU2 PR; -CELE40TA OR; -CETI10TA OR; -CITRATE OF MAGNESIA PO; +CLINDAMYCIN 600 MG/50 ML PREMIX BAG As Ordered; -COLA100C2 OR; -COMBVENT INH; -CORTISONE CREAM TOP; -DEPA500T; -DEPA500T2 OR; -DEPA500T2 PO; -DEPAKOTE PO; -DIVA500T3 PO; -DUONSOL IN; -ENEMENE3 PR; -ENOX40SY SC; -FLOV110A INH; -GABA800T3 OR; -HYDR50TA8 OR; -IBUP400T OR; -KEPP500T4 PO; -KEPPRA PO; -LASI20TA OR; -LASI40TA PO; -LEVETIRACETAM PO; +LIDOCAINE 2% MDV 20 ML VIAL As Ordered; -LIDODERM PATCH TD; -MEDR1VL IM; -METAXALONE PO; -METF1000 PO; -METF500T PO; -MILKSUS OR; -MIRALEX PO; -MOBI15TA PO; -MOM30SS PO; -MUCI600T34 PO; -MULTIVIT PO; -MYLASUS6 PO; -NEUR400C OR; -NEURONTIN PO; -NYSTPOW4 TOP; -PERC5TAB8 OR; -PERCOCET PO; -PREPARATION H TOP; -PREPGEL; -PROZAC PO; -SIMV20TA2 OR; -SODIGEL; -TRAZ50TA2 PO; -VENTAER IN; -VENTAER INH; -VIMP50TA3 PO; -VIST25CA OR; -VIST50CA OR; -WARF3TAB PO; -XANA0.25 PO; -ZANT150T PO; -[UNRECOGNIZED DRUG - OTHER] PO; -desyrel PO; -fleet enema PR; -imodium PO; -nicorette PO; -roxanol SL; -skelaxin PO
== END | disposition home or self-care (01) ==
LOC: M IRPRO 12:32
DX: C67.9 Malignant neoplasm of bladder, unspecified (principal); G80.9 Cerebral palsy, unspecified; Z72.0 Tobacco use
CPT/HCPCS: 36561

== ENCOUNTER 2018-02-15 11:12 | Outpatient (RCR) | payer MEDICAID | END 2018-03-16 | LOC: M ONCR 11:12 | DX: C67.1 Malignant neoplasm of dome of bladder (principal) | CPT/HCPCS: 77336 ==

== ENCOUNTER → 2018-02-26 | Outpatient (REF) | payer MEDICAID ==
[2018-02-26 09:46] LABS: HEMOGLOBIN 9.2 g/dl (12.0-15.5); MEAN CORPUSCULAR HEMOGLOBIN 23.4 pg (27.0-33.0); MEAN CORPUSCULAR HGB CONC 28.8 g/dl (32.0-36.5); MEAN CORPUSCULAR VOLUME 81.2 fl (80.0-96.0); PLATELET COUNT, AUTOMATED 201 10^3/uL (150-450); RED BLOOD COUNT 3.94 10^6/uL (4.00-5.40); RED CELL DISTRIBUTION WIDTH 21.2 % (11.5-14.5); WHITE BLOOD COUNT 4.5 10^3/uL (4.0-10.0)
[2018-02-26 10:13] LABS: ANION GAP 8 MEQ/L (8-16); BLOOD UREA NITROGEN 17 MG/DL (7-18); CALCIUM LEVEL 8.5 MG/DL (8.5-10.1); CARBON DIOXIDE LEVEL 41 MEQ/L (21-32); CHLORIDE LEVEL 89 MEQ/L (98-107); CREATININE FOR GFR 0.81 MG/DL (0.55-1.30); GLOMERULAR FILTRATION RATE > 60.0 (>60); GLUCOSE, FASTING 188 MG/DL (70-100); POTASSIUM SERUM 3.5 MEQ/L (3.5-5.1); SODIUM LEVEL 138 MEQ/L (136-145)
== END ==
DX: D64.9 Anemia, unspecified (principal)
CPT/HCPCS: 80048

== ENCOUNTER 2018-03-18 10:45 | Outpatient (RCR) | payer MEDICAID | END 2018-04-16 | LOC: M ONCR 10:45 | DX: C67.1 Malignant neoplasm of dome of bladder (principal) | CPT/HCPCS: 77300 ==

== ENCOUNTER 2018-03-19 15:59 | Inpatient (IN) | payer MEDICAID ==
[2018-03-19] MEDS: DIVALPROEX 250MG *ER* TAB PO (01:30)
[2018-03-19] MEDS: NYSTATIN 100,000 UNITS/GM TOPICAL PWD 15 GM TOP (01:30)
[2018-03-19 17:18] LABS: HEMATOCRIT 25.3 % (36.0-47.0); HEMOGLOBIN 7.8 g/dl (12.0-15.5); MEAN CORPUSCULAR HEMOGLOBIN 26.1 pg (27.0-33.0); MEAN CORPUSCULAR HGB CONC 30.8 g/dl (32.0-36.5); MEAN CORPUSCULAR VOLUME 84.6 fl (80.0-96.0); RED BLOOD COUNT 2.99 10^6/uL (4.00-5.40); RED CELL DISTRIBUTION WIDTH 21.2 % (11.5-14.5)
[2018-03-19 17:21] LABS: PLATELET COUNT, AUTOMATED 93 10^3/uL (150-450); POS COUNT POS FLAG; POSITIVE DIFF POS FLAG; WHITE BLOOD COUNT 1.3 10^3/uL (4.0-10.0)
[2018-03-19 17:22] LABS: ADD MANUAL DIFFER YES; DIFF SLIDE NUMBER 280
[2018-03-19 17:35] LABS: ANION GAP 11 MEQ/L (8-16); BLOOD UREA NITROGEN 17 MG/DL (7-18); CALCIUM LEVEL 5.6 MG/DL (8.5-10.1); CARBON DIOXIDE LEVEL 38 MEQ/L (21-32); CHLORIDE LEVEL 89 MEQ/L (98-107); CREATININE FOR GFR 0.83 MG/DL (0.55-1.30); GLOMERULAR FILTRATION RATE > 60.0 (>60); GLUCOSE, FASTING 110 MG/DL (70-100); POTASSIUM SERUM 3.3 MEQ/L (3.5-5.1); SODIUM LEVEL 138 MEQ/L (136-145)
[2018-03-19 17:49] LABS: ATYPICAL LYMPH 1 % (0-5); BANDS 4 % (< 11); LYMPHOCYTES 41 % (16-52); MONOCYTES 3 % (0-8); NEUTROPHILS 51 % (35-75)
[2018-03-19 17:50] LABS: ANISOCYTOSIS 3+
[2018-03-19 17:51] LABS: HYPOCHROMASIA 1+
[2018-03-19 17:52] LABS: PLATELET ESTIMATE DECREASED (NORMAL)
[2018-03-19] MEDS: CALCIUM GLUCONATE 1,000 MG in D5W MINI-BAG PLUS 100 ML IV ×2 (19:39→22:15)
[2018-03-19] MEDS ORDERED: BISACODYL 10 MG SUPP PR (20:45)
[2018-03-19] MEDS ORDERED: FLUoxetine 20 MG CAP PO (21:00)
[2018-03-19] MEDS: LevoFLOXacin IV 750 MG in APPROPRIATE DILUENT 1 EA IV (21:37)
[2018-03-19] MEDS: POTASSIUM CHLORIDE 10% LIQ 20 MEQ/15 ML UDC PO (21:38)
[2018-03-19] MEDS: GABAPENTIN 400 MG CAP PO (21:40)
[2018-03-19] MEDS: SENOKOT S TAB PO (21:41)
[2018-03-19] MEDS: BACLOFEN 10 MG TAB PO (21:41)
[2018-03-19] MEDS: FAMOTIDINE 20 MG TAB PO (21:41)
[2018-03-19] MEDS: PERCOCET 5MG/325MG TAB PO (21:42)
[2018-03-19] MEDS: levETIRAcetam 250MG TABLET (KEPPRA) PO (21:47)
[2018-03-19] MEDS: FLUoxetine 20 MG CAP PO (21:47)
[2018-03-19] MEDS: FUROSEMIDE 40 MG TAB PO (21:48)
[2018-03-19 22:01] LABS: ANION GAP 11 MEQ/L (8-16); BLOOD UREA NITROGEN 17 MG/DL (7-18); CALCIUM LEVEL 5.7 MG/DL (8.5-10.1); CARBON DIOXIDE LEVEL 37 MEQ/L (21-32); CHLORIDE LEVEL 90 MEQ/L (98-107); CREATININE FOR GFR 0.79 MG/DL (0.55-1.30); GLOMERULAR FILTRATION RATE > 60.0 (>60); GLUCOSE, FASTING 124 MG/DL (70-100); POTASSIUM SERUM 3.6 MEQ/L (3.5-5.1); SODIUM LEVEL 138 MEQ/L (136-145)
[2018-03-19 22:04] LABS: LACTIC ACID SEPSIS PROTOCOL 3.2 MMOL/L (0.4-2.0)
[2018-03-19] MEDS: ONDANSETRON 4MG/2ML VIAL (J2405) IV (22:48)
[2018-03-20 00:19] LABS: IMMEDIATE SPIN CROSSMATCH 1 2
[2018-03-20] MEDS: IPRATROPIUM 0.5MG/ALBUTEROL 2.5MG INH SOL UD 3ML (DUONEB)(J7620) NEB ×5 (00:35→20:12)
[2018-03-20] MEDS: ALPRAZolam 0.25 MG TAB PO (04:44)
[2018-03-20] MEDS: ONDANSETRON 4MG/2ML VIAL (J2405) IV ×3 (04:44→17:55)
[2018-03-20 06:29] LABS: HEMATOCRIT 26.9 % (36.0-47.0); HEMOGLOBIN 8.5 g/dl (12.0-15.5); LYMPH # 0.3 10^3/uL (1.5-4.5); LYMPH % 33.7 % (24.0-44.0); MEAN CORPUSCULAR HEMOGLOBIN 26.6 pg (27.0-33.0); MEAN CORPUSCULAR HGB CONC 31.6 g/dl (32.0-36.5); MEAN CORPUSCULAR VOLUME 84.3 fl (80.0-96.0); MONO # 0.1 10^3/uL (0.0-0.8); MONO % 6.1 % (0.0-5.0); NEUTROPHILS % 57.2 % (36.0-66.0); PLATELET COUNT, AUTOMATED 101 10^3/uL (150-450); RED BLOOD COUNT 3.19 10^6/uL (4.00-5.40); RED CELL DISTRIBUTION WIDTH 19.8 % (11.5-14.5)
[2018-03-20 06:45] LABS: ALBUMIN 2.9 GM/DL (3.2-5.2); ALBUMIN/GLOBULIN RATIO 0.71 (1.00-1.93); ALKALINE PHOSPHATASE 60 U/L (45-117); ALT/SGPT 19 U/L (12-78); ANION GAP 9 MEQ/L (8-16); AST/SGOT 24 U/L (7-37); BILIRUBIN,TOTAL 0.2 MG/DL (0.2-1.0); BLOOD UREA NITROGEN 18 MG/DL (7-18); CALCIUM LEVEL 6.1 MG/DL (8.5-10.1); CARBON DIOXIDE LEVEL 40 MEQ/L (21-32); CHLORIDE LEVEL 91 MEQ/L (98-107); CREATININE FOR GFR 0.67 MG/DL (0.55-1.30); GLOMERULAR FILTRATION RATE > 60.0 (>60); GLUCOSE, FASTING 91 MG/DL (70-100); SODIUM LEVEL 140 MEQ/L (136-145)
[2018-03-20 07:09] LABS: NEUTROPHILS # 0.6 10^3/uL (1.8-7.7); POS COUNT POS FLAG; POSITIVE DIFF POS FLAG
[2018-03-20] MEDS: GABAPENTIN 400 MG CAP PO ×3 (09:09→20:01)
[2018-03-20] MEDS: FAMOTIDINE 20 MG TAB PO ×2 (09:09→20:00)
[2018-03-20] MEDS: SENOKOT S TAB PO ×2 (09:09→20:01)
[2018-03-20] MEDS: levETIRAcetam 250MG TABLET (KEPPRA) PO ×2 (09:09→17:42)
[2018-03-20] MEDS: BACLOFEN 10 MG TAB PO ×3 (09:10→20:00)
[2018-03-20] MEDS: methylPREDNISolone INJ 40 MG/1 ML VIAL (J2920) IV ×2 (09:11→17:43)
[2018-03-20] MEDS: ASPIRIN 81 MG ENTERIC TAB PO (09:11)
[2018-03-20] MEDS: PANTOPRAZOLE 40MG TAB (PROTONIX) PO (09:11)
[2018-03-20] MEDS: PERCOCET 5MG/325MG TAB PO ×4 (09:11→21:36)
[2018-03-20] MEDS: FERROUS SULFATE 325MG TAB PO (09:12)
[2018-03-20] MEDS: POTASSIUM CHLORIDE 10 MEQ SR TABLET PO ×2 (09:12→20:01)
[2018-03-20] MEDS: LACTIC ACID 12% LOTION 225 GM BTL TOP (09:18)
[2018-03-20] MEDS: NYSTATIN 100,000 UNITS/GM TOPICAL PWD 15 GM TOP ×3 (09:18→20:01)
[2018-03-20] MEDS: BUDESONIDE 0.5 MG/2 ML INHALATION SUSPENSION INH ×2 (09:29→20:12)
[2018-03-20] MEDS ORDERED: PIPERACILLIN/TAZOBACTAM SOD 3.375 GM in D5W MINI-BAG PLUS 50 ML IV (13:45)
[2018-03-20 15:31] LABS: IONIZED CALCIUM 2.8 MG/DL (4.5-5.3)
[2018-03-20 15:45] LABS: ANION GAP 12 MEQ/L (8-16); BLOOD UREA NITROGEN 19 MG/DL (7-18); CALCIUM LEVEL 5.8 MG/DL (8.5-10.1); CARBON DIOXIDE LEVEL 35 MEQ/L (21-32); CHLORIDE LEVEL 93 MEQ/L (98-107); CREATININE FOR GFR 0.82 MG/DL (0.55-1.30); GLOMERULAR FILTRATION RATE > 60.0 (>60); GLUCOSE, FASTING 161 MG/DL (70-100); POTASSIUM SERUM 3.5 MEQ/L (3.5-5.1); SODIUM LEVEL 140 MEQ/L (136-145)
[2018-03-20] MEDS: CALCIUM CHLORIDE 10% 1 GM in D5W 100 ML IV ×3 (15:51→23:56)
[2018-03-20] MEDS: MEROPENEM INJ 1 GM in APPROPRIATE DILUENT 1 EA IV ×2 (15:52→23:05)
[2018-03-20] MEDS: VANCOMYCIN HCL 1,000 MG, VIAL MATE ADAPTER 1 EACH in D5W 250 ML IV ×2 (16:45→17:42)
[2018-03-20] MEDS: FILGRASTIM 300 MCG/0.5 ML SYRINGE (J1442 PER 1MCG) SC (17:42)
[2018-03-20] MEDS: DIVALPROEX 250MG *ER* TAB PO (17:42)
[2018-03-20] MEDS: FUROSEMIDE 40 MG TAB PO (17:43)
[2018-03-20] MEDS: FLUoxetine 20 MG CAP PO (17:43)
[2018-03-20] MEDS ORDERED: LevoFLOXacin IV 500 MG in APPROPRIATE DILUENT 1 EA IV (18:00)
[2018-03-20] MEDS: CALCITRIOL 0.25 MCG CAP (S0169) PO (18:24)
[2018-03-20 18:28] LABS: MAGNESIUM LEVEL 0.8 MG/DL (1.8-2.4)
[2018-03-20] MEDS: MAG SULF 1GM/100ML (MAG RUN) 1 GM in APPROPRIATE DILUENT 1 EA IV ×3 (20:02→21:27)
[2018-03-20 23:58] LABS: IONIZED CALCIUM 3.7 MG/DL (4.5-5.3)
[2018-03-21] MEDS: VANCOMYCIN HCL 1,000 MG, VIAL MATE ADAPTER 1 EACH in D5W 250 ML IV ×3 (00:18→16:51)
[2018-03-21] MEDS: methylPREDNISolone INJ 40 MG/1 ML VIAL (J2920) IV ×3 (00:18→20:28)
[2018-03-21 01:18] LABS: BLOOD UREA NITROGEN 20 MG/DL (7-18); GLUCOSE, FASTING 169 MG/DL (70-100)
[2018-03-21 01:19] LABS: ANION GAP 14 MEQ/L (8-16); CALCIUM LEVEL 7.7 MG/DL (8.5-10.1); CARBON DIOXIDE LEVEL 34 MEQ/L (21-32); CHLORIDE LEVEL 93 MEQ/L (98-107); CREATININE FOR GFR 0.89 MG/DL (0.55-1.30); GLOMERULAR FILTRATION RATE > 60.0 (>60); MAGNESIUM LEVEL 1.4 MG/DL (1.8-2.4); POTASSIUM SERUM 3.9 MEQ/L (3.5-5.1); SODIUM LEVEL 141 MEQ/L (136-145)
[2018-03-21] MEDS: MAG SULF 1GM/100ML (MAG RUN) 1 GM in APPROPRIATE DILUENT 1 EA IV ×2 (01:56→03:05)
[2018-03-21] MEDS: CALCIUM CHLORIDE 10% 1 GM in D5W 100 ML IV ×2 (02:10→03:05)
[2018-03-21] MEDS: IPRATROPIUM 0.5MG/ALBUTEROL 2.5MG INH SOL UD 3ML (DUONEB)(J7620) NEB ×6 (03:13→23:45)
[2018-03-21] MEDS: ONDANSETRON 4MG/2ML VIAL (J2405) IV ×4 (05:46→18:11)
[2018-03-21] MEDS: ACETAMINOPHEN TAB 650MG DOSE (2X325MG) PO ×2 (05:47→18:11)
[2018-03-21 05:52] LABS: KETONE, URINE AUTO RFX NEGATIVE (NEGATIVE); MUCUS, URINE RFX SMALL (NEGATIVE); NITRITE, URINE AUTO RFX NEGATIVE (NEGATIVE); RBC, URINE AUTO RFX 6 /HPF (0-3); SPECIFIC GRAVITY UR AUTO RFX 1.016 (1.002-1.035); SQUAM EPITHELIAL CELL UR AURFX 3 /HPF (0-6)
[2018-03-21 05:53] LABS: LEUKOCYTE ESTERASE UR AUTO RFX 2+ (NEGATIVE); WBC, URINE AUTO RFX 12 /HPF (0-3)
[2018-03-21] MEDS: MEROPENEM INJ 1 GM in APPROPRIATE DILUENT 1 EA IV ×2 (05:55→15:15)
[2018-03-21 06:17] LABS: IONIZED CALCIUM 4.6 MG/DL (4.5-5.3)
[2018-03-21 06:21] LABS: HEMATOCRIT 27.3 % (36.0-47.0); HEMOGLOBIN 8.7 g/dl (12.0-15.5); MEAN CORPUSCULAR HEMOGLOBIN 26.6 pg (27.0-33.0); MEAN CORPUSCULAR HGB CONC 31.9 g/dl (32.0-36.5); MEAN CORPUSCULAR VOLUME 83.5 fl (80.0-96.0); MONO # 0.1 10^3/uL (0.0-0.8); MONO % 6.9 % (0.0-5.0); NEUTROPHILS % 67.2 % (36.0-66.0); PLATELET COUNT, AUTOMATED 120 10^3/uL (150-450); RED BLOOD COUNT 3.27 10^6/uL (4.00-5.40)
[2018-03-21 06:25] LABS: IMMATURE GRANULOCYTE % 9.9 % (0-3.0); LYMPH # 0.2 10^3/uL (1.5-4.5); NEUTROPHILS # 0.9 10^3/uL (1.8-7.7); POS COUNT POS FLAG; POSITIVE DIFF POS FLAG; POSITIVE MORPH POS FLAG; WHITE BLOOD COUNT 1.3 10^3/uL (4.0-10.0)
[2018-03-21 06:58] LABS: ALBUMIN/GLOBULIN RATIO 0.81 (1.00-1.93); ALKALINE PHOSPHATASE 62 U/L (45-117); ALT/SGPT 21 U/L (12-78); ANION GAP 12 MEQ/L (8-16); AST/SGOT 21 U/L (7-37); BILIRUBIN,TOTAL 0.3 MG/DL (0.2-1.0); BLOOD UREA NITROGEN 17 MG/DL (7-18); CALCIUM LEVEL 9.7 MG/DL (8.5-10.1); CARBON DIOXIDE LEVEL 33 MEQ/L (21-32); CHLORIDE LEVEL 94 MEQ/L (98-107); CREATININE FOR GFR 0.79 MG/DL (0.55-1.30); GLOMERULAR FILTRATION RATE > 60.0 (>60); GLUCOSE, FASTING 128 MG/DL (70-100); POTASSIUM SERUM 3.9 MEQ/L (3.5-5.1); SODIUM LEVEL 139 MEQ/L (136-145); TOTAL PROTEIN 6.7 GM/DL (6.4-8.2)
[2018-03-21 07:10] LABS: MAGNESIUM LEVEL 1.7 MG/DL (1.8-2.4)
[2018-03-21] MEDS: BUDESONIDE 0.5 MG/2 ML INHALATION SUSPENSION INH ×2 (07:30→19:44)
[2018-03-21] MEDS: CALCITRIOL 0.25 MCG CAP (S0169) PO ×2 (08:21→20:27)
[2018-03-21] MEDS: POTASSIUM CHLORIDE 10 MEQ SR TABLET PO (08:22)
[2018-03-21] MEDS: FERROUS SULFATE 325MG TAB PO (08:25)
[2018-03-21] MEDS: ASPIRIN 81 MG ENTERIC TAB PO (08:25)
[2018-03-21] MEDS: PERCOCET 5MG/325MG TAB PO ×3 (08:25→20:28)
[2018-03-21] MEDS: FAMOTIDINE 20 MG TAB PO ×2 (08:26→20:27)
[2018-03-21] MEDS: levETIRAcetam 250MG TABLET (KEPPRA) PO ×2 (08:26→18:09)
[2018-03-21] MEDS: PANTOPRAZOLE 40MG TAB (PROTONIX) PO (08:26)
[2018-03-21] MEDS: BACLOFEN 10 MG TAB PO ×3 (08:26→20:27)
[2018-03-21] MEDS: SENOKOT S TAB PO ×2 (08:27→20:27)
[2018-03-21] MEDS: MAGNESIUM OXIDE 400 MG TAB (MAG-OX) PO ×2 (08:27→20:28)
[2018-03-21] MEDS: GABAPENTIN 400 MG CAP PO ×3 (08:27→20:27)
[2018-03-21] MEDS: NYSTATIN 100,000 UNITS/GM TOPICAL PWD 15 GM TOP ×3 (08:28→20:29)
[2018-03-21] MEDS: LACTIC ACID 12% LOTION 225 GM BTL TOP (08:29)
[2018-03-21] MEDS: FILGRASTIM 300 MCG/0.5 ML SYRINGE (J1442 PER 1MCG) SC (12:18)
[2018-03-21 12:44] LABS: PHOSPHORUS LEVEL 6.1 MG/DL (2.5-4.9)
[2018-03-21 15:25] LABS: VANCOMYCIN LEVEL TROUGH 19.3 UG/ML (10.0-20.0)
[2018-03-21 17:04] LABS: IONIZED CALCIUM 3.9 MG/DL (4.5-5.3)
[2018-03-21 17:22] LABS: ANION GAP 10 MEQ/L (8-16); BLOOD UREA NITROGEN 17 MG/DL (7-18); CALCIUM LEVEL 8.5 MG/DL (8.5-10.1); CARBON DIOXIDE LEVEL 32 MEQ/L (21-32); CHLORIDE LEVEL 97 MEQ/L (98-107); CREATININE FOR GFR 0.76 MG/DL (0.55-1.30); GLOMERULAR FILTRATION RATE > 60.0 (>60); GLUCOSE, FASTING 122 MG/DL (70-100); MAGNESIUM LEVEL 1.2 MG/DL (1.8-2.4); SODIUM LEVEL 139 MEQ/L (136-145)
[2018-03-21] MEDS: FLUoxetine 20 MG CAP PO (18:10)
[2018-03-21] MEDS: DIVALPROEX 250MG *ER* TAB PO (18:10)
[2018-03-21] MEDS: FUROSEMIDE 40 MG TAB PO (18:10)
[2018-03-22] MEDS: MEROPENEM INJ 1 GM in APPROPRIATE DILUENT 1 EA IV ×2 (00:49→05:55)
[2018-03-22] MEDS: VANCOMYCIN HCL 1,000 MG, VIAL MATE ADAPTER 1 EACH in D5W 250 ML IV ×2 (01:18→09:52)
[2018-03-22] MEDS: PERCOCET 5MG/325MG TAB PO ×2 (01:27→09:56)
[2018-03-22] MEDS: IPRATROPIUM 0.5MG/ALBUTEROL 2.5MG INH SOL UD 3ML (DUONEB)(J7620) NEB ×3 (05:17→11:40)
[2018-03-22] MEDS: ALPRAZolam 0.25 MG TAB PO (05:55)
[2018-03-22] MEDS: ACETAMINOPHEN TAB 650MG DOSE (2X325MG) PO (05:55)
[2018-03-22 06:04] LABS: HEMATOCRIT 27.4 % (36.0-47.0); HEMOGLOBIN 8.6 g/dl (12.0-15.5); IMMATURE GRANULOCYTE % 2.4 % (0-3.0); LYMPH # 0.7 10^3/uL (1.5-4.5); LYMPH % 39.3 % (24.0-44.0); MEAN CORPUSCULAR HEMOGLOBIN 26.7 pg (27.0-33.0); MEAN CORPUSCULAR HGB CONC 31.4 g/dl (32.0-36.5); MEAN CORPUSCULAR VOLUME 85.1 fl (80.0-96.0); MONO # 0.1 10^3/uL (0.0-0.8); NEUTROPHILS % 52.3 % (36.0-66.0); PLATELET COUNT, AUTOMATED 155 10^3/uL (150-450); RED BLOOD COUNT 3.22 10^6/uL (4.00-5.40)
[2018-03-22 06:05] LABS: NEUTROPHILS # 0.9 10^3/uL (1.8-7.7); POS COUNT POS FLAG; POSITIVE DIFF POS FLAG; POSITIVE MORPH POS FLAG; WHITE BLOOD COUNT 1.7 10^3/uL (4.0-10.0)
[2018-03-22 06:27] LABS: ALBUMIN 2.8 GM/DL (3.2-5.2); ALBUMIN/GLOBULIN RATIO 0.61 (1.00-1.93); ALKALINE PHOSPHATASE 55 U/L (45-117); ALT/SGPT 21 U/L (12-78); ANION GAP 14 MEQ/L (8-16); AST/SGOT 25 U/L (7-37); BILIRUBIN,TOTAL 0.3 MG/DL (0.2-1.0); BLOOD UREA NITROGEN 14 MG/DL (7-18); CALCIUM LEVEL 8.1 MG/DL (8.5-10.1); CARBON DIOXIDE LEVEL 31 MEQ/L (21-32); CHLORIDE LEVEL 93 MEQ/L (98-107); CREATININE FOR GFR 0.74 MG/DL (0.55-1.30); GLOMERULAR FILTRATION RATE > 60.0 (>60); GLUCOSE, FASTING 92 MG/DL (70-100); POTASSIUM SERUM 3.7 MEQ/L (3.5-5.1); SODIUM LEVEL 138 MEQ/L (136-145); TOTAL PROTEIN 7.4 GM/DL (6.4-8.2)
[2018-03-22] MEDS ORDERED: guaiFENesin SYRUP 200 MG/10 ML UDC PO (06:30)
[2018-03-22 06:46] LABS: MAGNESIUM LEVEL 1.2 MG/DL (1.8-2.4)
[2018-03-22] MEDS: MAG SULF 1GM/100ML (MAG RUN) 1 GM in APPROPRIATE DILUENT 1 EA IV ×2 (07:09→08:18)
[2018-03-22] MEDS: BUDESONIDE 0.5 MG/2 ML INHALATION SUSPENSION INH (07:22)
[2018-03-22] MEDS: IBUPROFEN 800 MG TAB PO (08:05)
[2018-03-22] MEDS: SENOKOT S TAB PO (09:53)
[2018-03-22] MEDS: FAMOTIDINE 20 MG TAB PO (09:53)
[2018-03-22] MEDS: GABAPENTIN 400 MG CAP PO (09:53)
[2018-03-22] MEDS: levETIRAcetam 250MG TABLET (KEPPRA) PO (09:54)
[2018-03-22] MEDS: MAGNESIUM OXIDE 400 MG TAB (MAG-OX) PO (09:54)
[2018-03-22] MEDS: PANTOPRAZOLE 40MG TAB (PROTONIX) PO (09:54)
[2018-03-22] MEDS: POTASSIUM CHLORIDE 10 MEQ SR TABLET PO (09:54)
[2018-03-22] MEDS: BACLOFEN 10 MG TAB PO (09:54)
[2018-03-22] MEDS: FLUCONAZOLE 100 MG TAB PO (09:56)
[2018-03-22] MEDS: CALCITRIOL 0.25 MCG CAP (S0169) PO (09:56)
[2018-03-22] MEDS: ASPIRIN 81 MG ENTERIC TAB PO (09:56)
[2018-03-22] MEDS: methylPREDNISolone INJ 40 MG/1 ML VIAL (J2920) IV (09:56)
[2018-03-22] MEDS: FERROUS SULFATE 325MG TAB PO (09:56)
[2018-03-22] MEDS: FILGRASTIM 300 MCG/0.5 ML SYRINGE (J1442 PER 1MCG) SC (09:57)
[2018-03-22] MEDS: NYSTATIN 100,000 UNITS/GM TOPICAL PWD 15 GM TOP (09:58)
[2018-03-22] MEDS: LACTIC ACID 12% LOTION 225 GM BTL TOP (09:58)
[2018-03-22] MEDS: ONDANSETRON 4MG/2ML VIAL (J2405) IV (12:17)
[2018-03-24 00:07] LABS: PHOSPHOLIPIDS LEVEL 265 mg/dL (150-250)
== END 2018-03-22 14:30 | DRG 660 ==
LOC: M ED 15:59 → M ED INP 20:19 → M PCU 20:56
PROVIDERS: Pediatrics
DX: D70.9 Neutropenia, unspecified (principal); R53.2 Functional quadriplegia; K76.0 Fatty (change of) liver, not elsewhere classified; J45.901 Unspecified asthma with (acute) exacerbation; G80.0 Spastic quadriplegic cerebral palsy; Z68.43 Body mass index [BMI] 50.0-59.9, adult; C67.9 Malignant neoplasm of bladder, unspecified; E83.42 Hypomagnesemia; E83.51 Hypocalcemia; E66.01 Morbid (severe) obesity due to excess calories; G47.33 Obstructive sleep apnea (adult) (pediatric); E87.6 Hypokalemia; G40.909 Epilepsy, unspecified, not intractable, without status epilepticus; E78.5 Hyperlipidemia, unspecified; F60.3 Borderline personality disorder; Z51.5 Encounter for palliative care; F32.9 Major depressive disorder, single episode, unspecified; K21.9 Gastro-esophageal reflux disease without esophagitis; N83.8 Other noninflammatory disorders of ovary, fallopian tube and broad ligament; Z79.899 Other long term (current) drug therapy; Z88.0 Allergy status to penicillin; Z88.8 Allergy status to other drugs, medicaments and biological substances; Z91.041 Radiographic dye allergy status; Z91.040 Latex allergy status; Z86.718 Personal history of other venous thrombosis and embolism; D61.810 Antineoplastic chemotherapy induced pancytopenia

== ENCOUNTER → 2018-03-19 | Outpatient (REF) | payer MEDICAID ==
[2018-03-19 12:27] LABS: HEMATOCRIT 26.2 % (36.0-47.0); MEAN CORPUSCULAR HEMOGLOBIN 25.7 pg (27.0-33.0); MEAN CORPUSCULAR HGB CONC 30.5 g/dl (32.0-36.5); MEAN CORPUSCULAR VOLUME 84.2 fl (80.0-96.0); RED BLOOD COUNT 3.11 10^6/uL (4.00-5.40); RED CELL DISTRIBUTION WIDTH 21.7 % (11.5-14.5)
[2018-03-19 12:28] LABS: PLATELET COUNT, AUTOMATED 96 10^3/uL (150-450); POS COUNT POS FLAG; WHITE BLOOD COUNT 1.1 10^3/uL (4.0-10.0)
[2018-03-19 12:29] LABS: IMMATURE PLATELET FRACTION % 4.9 % (0.0-9.6); PLATELET F 96
[2018-03-19 13:05] LABS: ANION GAP 12 MEQ/L (8-16); BLOOD UREA NITROGEN 18 MG/DL (7-18); CARBON DIOXIDE LEVEL 38 MEQ/L (21-32); CHLORIDE LEVEL 88 MEQ/L (98-107); CREATININE FOR GFR 0.81 MG/DL (0.55-1.30); GLOMERULAR FILTRATION RATE > 60.0 (>60); GLUCOSE, FASTING 144 MG/DL (70-100); SODIUM LEVEL 138 MEQ/L (136-145)
[2018-03-19 13:19] LABS: CALCIUM LEVEL 5.9 MG/DL (8.5-10.1)
[2018-03-19 13:20] LABS: POTASSIUM SERUM 2.9 MEQ/L (3.5-5.1)
== END ==
DX: J20.9 Acute bronchitis, unspecified (principal); R05 Cough
CPT/HCPCS: 71046

== ENCOUNTER → 2018-04-29 | Outpatient (REF) ==
[2018-05-02 00:08] LABS: SCABIES EXAMINATION None seen (None seen)
== END ==
DX: R21 Rash and other nonspecific skin eruption (principal)